=== PATIENT | male | born 1975 | race Caucasian/White ===

== ENCOUNTER 2019-11-18 12:25 | Emergency (ER) | payer MEDICAID ==
[~2019-11-18] VITALS: Ht 154.9 cm; Wt 86.2 kg
[2019-11-18 12:39] VITALS: Ht 154.9 cm; Wt 86.2 kg
[2019-11-18 14:33] VITALS: BP 157/99
== END 2019-11-18 14:33 | disposition home or self-care (01) ==
LOC: ED 12:25
DX: J11.1 Influenza due to unidentified influenza virus with other respiratory manifestations (principal); E11.9 Type 2 diabetes mellitus without complications
CPT/HCPCS: J1885; Q0092